=== PATIENT | male | born 1975 | race Caucasian/White ===

== ENCOUNTER 2018-03-04 17:51 | Emergency (ER) | payer OTHER ==
[2018-03-04 17:55] VITALS: BP 153/99
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
[2018-03-04] MEDS ORDERED: DIPHTH/TETANUS/ACEL. PERTUSSIS IM ONLY ONE (18:25)
== END 2018-03-04 18:37 | disposition home or self-care (01) ==
LOC: ER 18:13
DX: S00.432A Contusion of left ear, initial encounter (principal); V49.40XA Driver injured in collision with unspecified motor vehicles in traffic accident, initial encounter
CPT/HCPCS: 90471; 90715; 99283